=== PATIENT | female | born 1990 | race Caucasian/White ===

== ENCOUNTER 2017-05-08 05:00 | Emergency (ER) | payer SELFPAY ==
[~2017-05-08] VITALS: Ht 172.7 cm; Wt 70.3 kg
--- NOTE | 2017-05-08 05:00 | NUR ---
Patient BIB [facility] to be evaluated as pre-book, transferred to [facility]. RN evaluating patient.
[2017-05-08 05:05] VITALS: BP 127/85
[2017-05-08 05:45] VITALS: BP 113/67
--- NOTE | 2017-05-08 05:45 | NUR ---
Patient discharged with v/s stable. Written and verbal after care instructions given and explained. Patient verbalized understanding. Police with in custody. All questions addressed prior to discharge. Advised to follow up with [employer]D.
== END 2017-05-08 05:45 ==
LOC: MED 05:00
DX: Z02.89 Encounter for other administrative examinations (principal); V49.40XA Driver injured in collision with unspecified motor vehicles in traffic accident, initial encounter; Y93.89 Activity, other specified; Y92.89 Other specified places as the place of occurrence of the external cause; Y99.8 Other external cause status
CPT/HCPCS: 99283